=== PATIENT | male | born 1955 | race Caucasian/White ===

== ENCOUNTER 2019-03-04 08:10 | Inpatient (IN) | payer OTHER ==
[~2019-03-04] VITALS: Ht 180.3 cm; Wt 74.4 kg
[2019-03-04] VITALS (8 sets, daily range): BP systolic 116–145; BP diastolic 78–92
[~2019-03-04 08:10] MED LIST: DAYPRO600 M1 PO; NITROSTAT0.4 MG SL; NKHM; PRILOSEC20 MG PO; REGLAN5 MG PO; ROBAXIN750 MG PO; ZOFRAN4 MG PO
[2019-03-04 08:31] LABS: BASO # 0.1 10*3/uL (0.0-0.1); EOS # 0.2 10*3/uL (0.0-0.4); EOS % 2.4 % (1.0-4.0); HEMATOCRIT 36.7 % (42.0-52.0); HEMOGLOBIN 11.9 g/dl (14.0-18.0); LYMPH # 2.1 10*3/uL (1.3-4.4); LYMPH % 20.7 % (27.0-41.0); MEAN CELL VOLUME 89.3 fl (80.0-94.0); MEAN CORPUSCULAR HGB CONC 32.4 g/dl (33.0-37.0); MEAN PLATELET VOLUME 8.7 fl (9.6-12.3); MONO # 0.9 10*3/uL (0.1-1.0); MONO % 8.8 % (3.0-9.0); NEUT # 6.7 10*3/uL (2.3-7.9); NEUT % 66.8 % (47.0-73.0); PLATELET COUNT AUTOMATED 443 10*3/uL (130-400); RED BLOOD COUNT 4.11 10*6/uL (4.50-5.90); RED CELL DISTRI WIDTH 12.5 % (0-14.5); WHITE BLOOD COUNT 10.1 10*3/uL (4.8-10.8)
[2019-03-04 08:41] LABS: ACT PARTIAL THROMBO TIME 27.5 SECONDS (20.0-32.1)
[2019-03-04 08:47] LABS: ALBUMIN 2.8 gm/dl (3.1-4.5); ALKALINE PHOSPHATASE 89 U/L (45-117); BUN 12 mg/dl (7-24); CHLORIDE 103 mmol/L (98-107); CREATININE 0.94 mg/dL (0.70-1.30); POTASSIUM 4.4 mmol/L (3.5-5.1); SGOT/AST 10 IU/L (3-35); SGPT/ALT 12 U/L (12-78); SODIUM 135 mmol/L (136-145); TOTAL PROTEIN 7.6 gm/dL (6.4-8.2)
[2019-03-04 08:48] LABS: TROPONIN I < 0.015 ng/ml (<0.045)
--- NOTE | 2019-03-04 09:45 | NUR ---
PT AMBULATED TO BATHROOM IN HALLWAY AND BACK TO ROOM, TOLERATED WELL
--- NOTE | 2019-03-04 10:25 | NUR ---
1 GM ROCEPHIN GIVEN IV, NOT THE 2 GM SCANNED. THIS NURSE CHECKED WITH PHARMACY AND DANELLE STATED ONLY 1 GM TO BE GIVEN AND TO DOCUMENT IN NURSES NOTES HE WAS UNABLE TO CANCEL MED.
--- NOTE | 2019-03-04 11:29 | NUR ---
A 63, admitted to , under the services of BOGDAN Pierre DO with a diagnosis of PNEUMONIA AND CHEST PAIN. Chief complaint is CHEST PAIN. Patient arrived via bed from ER. Monitor applied. Initial assessment completed. Vital signs taken and recorded. BOGDAN PIERRE DO notified of admission to the unit. Orders received. See assessment for past medical history, medications and allergies. Patient and/or family oriented to unit. [facility] visitation policy reviewed. Clothing/patient valuable form completed. YADIRA RODRIGUEZ
--- NOTE | 2019-03-04 12:04 | NUR ---
ALBINA NOTIFIED PT DOES NOT TAKE ANY HOME MEDICATIONS. STATES SHE IS PUTTING ORDERS IN AT THIS TIME.
--- NOTE | 2019-03-04 12:18 | NUR ---
CONSULT CALLED TO DR. BOJORQUEZ, NO ORDERS RECEIVED.
--- NOTE | 2019-03-04 15:50 | NUR ---
PT. INSTRUCTED ON FLUTTER, AERO TX NOT GIVEN , NO SOB AND LUNGS CLEAR AT THIS TIME.
[2019-03-05] VITALS: BP 112/80
[2019-03-05 06:29] LABS: BASO # 0.1 10*3/uL (0.0-0.1); BASO % 1.5 % (0.0-1.0); EOS # 0.2 10*3/uL (0.0-0.4); EOS % 2.6 % (1.0-4.0); HEMATOCRIT 34.9 % (42.0-52.0); HEMOGLOBIN 11.2 g/dl (14.0-18.0); LYMPH # 1.6 10*3/uL (1.3-4.4); LYMPH % 18.2 % (27.0-41.0); MEAN CELL VOLUME 87.9 fl (80.0-94.0); MEAN CORPUSCULAR HGB 28.2 pg (27.0-31.0); MEAN CORPUSCULAR HGB CONC 32.1 g/dl (33.0-37.0); MEAN PLATELET VOLUME 8.9 fl (9.6-12.3); MONO # 0.7 10*3/uL (0.1-1.0); MONO % 8.4 % (3.0-9.0); NEUT # 5.9 10*3/uL (2.3-7.9); NEUT % 68.9 % (47.0-73.0); PLATELET COUNT AUTOMATED 426 10*3/uL (130-400); RED BLOOD COUNT 3.97 10*6/uL (4.50-5.90); RED CELL DISTRI WIDTH 12.4 % (0-14.5); WHITE BLOOD COUNT 8.5 10*3/uL (4.8-10.8)
[2019-03-05 06:47] LABS: ALBUMIN 2.4 gm/dl (3.1-4.5); BUN 12 mg/dl (7-24); CHLORIDE 109 mmol/L (98-107); CHOLESTEROL 144 mg/dL (<200); CREATININE 0.71 mg/dL (0.70-1.30); PHOSPHOROUS 1.8 mg/dL (2.5-4.9); POTASSIUM 3.8 mmol/L (3.5-5.1); SGOT/AST 10 IU/L (3-35); SGPT/ALT 12 U/L (12-78); SODIUM 137 mmol/L (136-145); TRIGLYCERIDES 67 mg/dl (<150); VLDL CHOLESTEROL 13 mg/dL (6-40)
[2019-03-05 06:54] LABS: ALKALINE PHOSPHATASE 86 U/L (45-117); HDL CHOLESTEROL 33 mg/dl (40-60); LDL CHOLESTEROL 98 mg/dL (9-159); TOTAL PROTEIN 6.9 gm/dL (6.4-8.2)
[2019-03-05 08:00] VITALS: BP 112/80
[2019-03-05 12:00] VITALS: BP 109/72
--- NOTE | 2019-03-05 12:49 | NUR ---
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 Patient states lives at HOME with ALONE. There are FEW steps in the home. Physician: NO PCP ONLY SEE'S [facility]: [facility] Home health services: NONE Patient's level of ADLs: INDEPENDENT Patient has working utilities: YES DME: NONE Follow-up physician's appointment after d/c: WILL FIND ONE AND SET UP APPOINTMENT Does patient want to access PORTAL?: NO Discharge plan PT LIVES AT HOME ALONE AND IS INDEPENDENT IN HIS CARE. DENIES HE WILL HAVE ANY NEEDS AT HOME. WILL RETURN HOME WHEN MEDICALLY STABLE. WILL CONTINUE TO FOLLOW. WILL HAVE A RIDE HOME ON DISCHARGE.. VINOD MORENO
--- NOTE | 2019-03-05 15:17 | NUR ---
WALKING HALLS WITH EASE. NO VOICED COMPLAINTS, NO SXS OF DISTRESS, RESPERS EASY & REGULAR.
[2019-03-05 16:00] VITALS: BP 133/79
[2019-03-05 20:00] VITALS: BP 136/80
[2019-03-06] VITALS (10 sets, daily range): BP systolic 84–124; BP diastolic 37–75
--- NOTE | 2019-03-06 08:00 | NUR ---
PT TAKEN OFF FLOOR VIA CART FOR SCHEDULED BRONCH.
--- NOTE | 2019-03-06 11:05 | NUR ---
PT RETURNED FROM SCHEDULED BRONCH.
--- NOTE | 2019-03-06 11:06 | NUR ---
ALBINA RODRIGUEZ IN TO SEE PATIENT.
--- NOTE | 2019-03-06 11:25 | NUR ---
PT MEDICATED WITH PO NORCO PER PRN ORDER FOR C/O HEADACHE. WILL MONITOR EFFECTIVENESS.
--- NOTE | 2019-03-06 12:03 | NUR ---
PT CONTINUES TO DENY NEEDS AT HOME ON DISCHARGE. CAN BE DISCHARGED TO HOME WHEN MEDICALLY STABLE. WILL CONTINUE TO FOLLOW.
--- NOTE | 2019-03-06 12:30 | NUR ---
NORCO EFFECTIVE PER PT. WILL CONTINUE TO MONITOR.
--- NOTE | 2019-03-06 16:40 | NUR ---
PATIENT UP IN RECLINER CHAIR. NO VOICED COMPLAINTS. WILL CONTINUE TO MONITOR.
--- NOTE | 2019-03-06 20:57 | NUR ---
PRN RESTORIL AND NORCO ADMINISTERED PRESCRIBED FOR PT C/O 09/05 CHEST TENDERNESS RELATED TO DRY HACKING COUGH. PT DENIES THAT THE PAIN IS HEART RELATED. STATES IT IS "FROM COUGHING". WILL CONTINUE TO MONITOR AND REASSESS. NO OTHER COMPLAINTS AT THIS TIME. CALL LIGHT IN REACH.
--- NOTE | 2019-03-06 22:00 | NUR ---
PT ASLEEP AT THIS TIME. NO SIGNS OF DISCOMFORT OR DISTRESS WERE NOTED UPON ASSESSMENT. RESPIRATIONS EASY AND UNLABORED. WILL CONTINUE TO MONITOR.
[2019-03-07] VITALS: BP 108/70
--- NOTE | 2019-03-07 00:49 | NUR ---
24 HOUR CHART CHECK COMPLETE.
[2019-03-07 08:00] VITALS: BP 105/58
--- NOTE | 2019-03-07 10:13 | NUR ---
PT MEDICATED WITH PO NORCO PER PRN ORDER FOR C/O GENERALIZED PAIN/DISCOMFORT. WILL MONITOR EFFECTIVENESS. CALL LIGHT WITHIN REACH.
[2019-03-07] MEDS ORDERED: AVPAK AZITHROM250 M1 PO (10:24)
[2019-03-07] MEDS ORDERED: VITAMIN D32000 UNI1 PO (10:24)
--- NOTE | 2019-03-07 11:27 | NUR ---
Discharge instructions reviewed with patient/family. Patient receptive and verbalizes understanding. Follow-up care arranged. Written instructions given to patient/family. SURINDER BOJORQUEZ.
--- NOTE | 2019-03-07 12:41 | NUR ---
PT STATES HE WILL RETURN HOME ON DISCHARGE WITH NO NEW NEEDS. WILL CONTINUE TO FOLLOW.
[2019-03-07 15:06] LABS: ACID FAST SPEC PROCESSING Concentration (.)
[2019-04-17 17:11] LABS: ACID FAST CULTURE Negative (.)
== END 2019-03-07 11:27 | disposition home or self-care (01) | DRG 871 ==
LOC: ED 08:10 → EDHOLD 09:21 → 5E 09:21
PROVIDERS: Emergency Medicine; Internal Medicine Critical Care Medicine; Registered Nurse; ADMIT Internal Medicine
PROC: 0BB48ZX Excision of Right Upper Lobe Bronchus, Via Natural or Artificial Opening Endoscopic, Diagnostic (ICD-10-PCS; principal; 2019-03-06)
PROC: 0BD38ZX Extraction of Right Main Bronchus, Via Natural or Artificial Opening Endoscopic, Diagnostic (ICD-10-PCS; principal; 2019-03-06)
PROC: 0BC98ZZ Extirpation of Matter from Lingula Bronchus, Via Natural or Artificial Opening Endoscopic (ICD-10-PCS; principal; 2019-03-06)
PROC: 0BC88ZZ Extirpation of Matter from Left Upper Lobe Bronchus, Via Natural or Artificial Opening Endoscopic (ICD-10-PCS; principal; 2019-03-06)
DX: A41.9 Sepsis, unspecified organism (principal); J15.6 Pneumonia due to other Gram-negative bacteria; E87.1 Hypo-osmolality and hyponatremia; E44.0 Moderate protein-calorie malnutrition; J44.0 Chronic obstructive pulmonary disease with (acute) lower respiratory infection; E78.2 Mixed hyperlipidemia; K21.9 Gastro-esophageal reflux disease without esophagitis; R91.1 Solitary pulmonary nodule; F10.10 Alcohol abuse, uncomplicated; Z90.49 Acquired absence of other specified parts of digestive tract; Z87.891 Personal history of nicotine dependence; Z68.22 Body mass index [BMI] 22.0-22.9, adult

== ENCOUNTER 2019-03-31 16:41 | Inpatient (IN) | payer OTHER ==
[~2019-03-31] VITALS: Ht 180.3 cm; Wt 61.4 kg
--- NOTE | ~2019-03-31 | EKG ---
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: : 1955 Requested By: BOBBI ASHLEY Order Number: [id number] Reading MD: Job Anglin Measurements Intervals [place] Rate: 107 P: 52 CO: 128 QRS: -40 QRSD: 97 T: 70 QT: 345 QTc: 461 Interpretive Statements Sinus tachycardia Ventricular premature complex Left axis deviation Low voltage, extremity leads Compared to ECG 03/05/2019 10:32:32 Ventricular premature complex(es) now present Left-axis deviation now present Low QRS voltage now present Sinus rhythm no longer present Electronically Signed On 04-01-2019 11:14:05 PST by Job Anglin CM:EKGRPT:ELECTROCARDIOGRAM REPORT [id number] BOBBI ADAMS DRAFT REPORT BOBBI ASHLEY MD
--- NOTE | ~2019-03-31 | EKG ---
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1955 Requested By: BOBBI ASHLEY Order Number: [id number] Reading MD: Job Anglin Measurements Intervals [place] Rate: 94 P: 63 NE: 140 QRS: -57 QRSD: 100 T: 70 QT: 373 QTc: 467 Interpretive Statements Sinus rhythm Multiple premature complexes, vent \T\ supraven Probable left atrial enlargement LAD, consider left anterior fascicular block Abnormal R-wave progression, late transition Compared to ECG 03/05/2019 10:32:32 No significant changes Electronically Signed On 04-01-2019 11:16:58 PST by Job Anglin CM:EKGRPT:ELECTROCARDIOGRAM REPORT [id number] BOBBI ADAMS DRAFT REPORT BOBBI ASHLEY MD
--- NOTE | ~2019-03-31 | PR ---
[place], [place] PROGRESS NOTE [id number] UNIT #: [id number] ROOM: 404 DOCTOR: PARIS MERCADO MD BIRTHDATE: [birth year] DOS: 04/04/2019 SUBJECTIVE: The patient has been still complaining of pain in the chest at the site of PleurX catheter, stated the pain does not come unless he moves around. He denies symptoms of hemoptysis. The patient has not been reported any symptoms of headache or diplopia. Denies symptoms of nausea, vomiting or diarrhea. He has expectorated sputum, which will be sent to the lab for culture. PleurX catheter was inserted 2 days ago. Remaining systems reviewed. They were noted all negative. OBJECTIVE: VITAL SIGNS: For the patient normal temperature, respiratory rate 20, heart rate 108, blood pressure 114/64. The pulse oxygen saturation on 3 liters nasal cannula 93% saturation. HEENT: Examination shows head was atraumatic. Eyes nonicterus. NECK: Supple. CARDIOVASCULAR: S1, S2 audible. LUNGS: Noted decreased breath in the right lung as previously. ABDOMEN: Soft, nontender. Bowel sounds present. EXTREMITIES: Noted without any acute edema. LABORATORY DATA: There were no labs done today. The culture of the pleural fluid noted no bacterial growth. IMPRESSION: Malignant right pleural fluid with acute pneumonia, possibility of a post-obstruction and poorly differentiated adenocarcinoma. PLAN OF MANAGEMENT: Another drainage of the pleural fluid will be attempted. Significant improvement in the aeration of the lungs noted. Post drainage of pleural fluid was assessed yesterday. In the meantime, continue other therapy, plan of management. Send the sputum for culture. Continue antibiotics. Additional treatment changes recommended based on progression of the illness. The drainage of pleural fluid will be done by the nursing staff from the PleurX catheter. [place], [place] PROGRESS NOTE NAME: [facility] [id number] UNIT #: [id number] ROOM: 404 DOCTOR: PARIS MERCADO MD BIRTHDATE: [birth year] PARIS BOJORQUEZ MD CM:PNTRANS [id number] PARIS BECKER MD 04/04/19 1358 interface
--- NOTE | ~2019-03-31 | PR ---
[place], [place] PROGRESS NOTE NAME: ANNALEE VYAS [facility] #: [id number] UNIT #: [id number] ROOM: 404 DOCTOR: RENO BECKER MD,PARIS BIRTHDATE: [birth year] DOS: 04/08/2019 PULMONARY PROGRESS NOTE SUBJECTIVE: He has been still noted about the same. No major changes in the oxygen improvement was noted, mild tachypnea noted at rest. He has been continued on all other previous treatment and was also started on Lasix yesterday. We noted negative fluid balance of 800 mL. The patient has not been noted with symptoms of coughing or any chest pain. He was continued on antibiotic for as well. He has not been noted symptoms of headache or diplopia. Denies symptoms of nausea, vomiting, diarrhea, abdominal pain, hematemesis, melena, or hematochezia. No symptoms of headache or diplopia. Remaining systems were reviewed with the patient, they were noted all negative. OBJECTIVE: GENERAL: The patient noted comfortable at this time, resting in the bed this morning of assessment with oxygen supplementation used by the nasal cannula. VITAL SIGNS: Normal temperature, respiratory rate 18, heart rate 102, blood pressure 143/77. Pulse oxygen saturation on 7 liters nasal cannula 92% saturation. HEENT: Examination shows head was atraumatic. Eyes nonicterus. NECK: Supple. CARDIOVASCULAR: S1, S2 audible. LUNGS: Scattered crackles of the lung. There was no wheezing. ABDOMEN: Soft, nontender. Bowel sounds present. EXTREMITIES: The patient was noted without acute edema. MUSCULOSKELETAL: Noted without any acute deformities. CENTRAL NERVOUS SYSTEM: Noted intact bilaterally. LABORATORY DATA: There were no labs done today. IMPRESSION: The patient with persistent severe acute hypoxic respiratory failure, which is worse in the last 48 hours. The patient has been given diuretic of no benefit. Right middle lobe atelectasis has a mass lesion and the right lower lobe infiltration was noted. Currently treated for suspected pneumonia. The patient remains afebrile and there were no significant leukocytosis. PLAN OF MANAGEMENT: The patient will be recommended transfer to [facility] for further assessment and care of his malignant process. In the meantime, continue the patient's current therapy, plan of management, care plan treatment as well. Usual care, other supportive plan of therapy. Continue oxygen supplementation, pulse ox 92% or greater. Supportive care. Continuation of the medical and acute pulmonary embolism with the Lovenox. [place], [place] PROGRESS NOTE NAME: ANNALEE VYAS UNIT #: [id number] ROOM: [facility] DOCTOR: PARIS MERCADO MD BIRTHDATE: [birth year] PARIS BOJORQUEZ MD CM:PNTRANS [phone] PARIS BECKER MD 04/09/19 0104 interface
--- NOTE | ~2019-03-31 | CON ---
[place], [place] REPORT OF CONSULTATION NAME: ANNALEE VYAS UNIT #: [id number] ROOM: 404 DOCTOR: GALILEO AGRAWALRICH BIRTHDATE: [birth year] DOS: 04/05/2019 CARDIOLOGY CONSULTATION REASON FOR CONSULTATION: Supraventricular tachycardia. HISTORY OF PRESENT ILLNESS: The patient is a 65-year-old gentleman who was admitted several days ago for shortness of breath. He was diagnosed with pulmonary emboli as well as some right lower lung mass. The patient had right PleurX catheter and follows up with Dr. Velez, he noted to have a brief supraventricular tachycardia, hence Cardiology was consulted. He did complain of some pain, sharp at the PleurX catheter, but no palpitations or dizziness. No orthopnea. No exertional chest pain. The patient is slightly short of breath and currently on oxygen. No nausea, vomiting, diarrhea. No fever or chills. No neurologic symptoms. No bladder or bowel symptoms. No musculoskeletal symptoms. REVIEW OF SYSTEMS: Ten systems negative except as mentioned above. PAST MEDICAL HISTORY: 1. Right lung cancer. 2. Dyslipidemia. PAST SURGICAL HISTORY: History of carpal tunnel surgery, cholecystectomy. FAMILY HISTORY: Nil contributory. SOCIAL HISTORY: The patient quit smoking in January 2019. Does not use illicit drugs. The patient does drink alcohol. ALLERGIES: Reviewed. HOME MEDICATIONS: Reviewed. PHYSICAL EXAMINATION: VITAL SIGNS: Blood pressure 124/70, pulse 102, respiratory rate 20, weight 65.2 kg, BMI 20. GENERAL: Alert, comfortable, in no acute distress. HEENT: Pupils are round and equal. No jaundice. NECK: Supple. No distended neck veins. No carotid bruit. CHEST: Nontender. The patient had a right PleurX catheter in place. LUNGS: A few scattered rhonchi, diminished at right side. HEART: Regular rhythm, no S3, no palpable thrills. ABDOMEN: Nontender. Bowel sounds normal. EXTREMITIES: Showed no edema. Distal pulses palpable. SKIN: Warm and dry. No cyanosis, no clubbing. RECTAL: Deferred. GENITOURINARY: Deferred. NEUROLOGIC: The patient is alert with no focal neurologic deficit. PSYCHIATRIC: Alert with good mood and affect. [place], [place] REPORT OF CONSULTATION NAME: ANNALEE VYAS UNIT #: [id number] ROOM: 404 DOCTOR: GALILEO AGRAWAL,RICH BIRTHDATE: [birth year] REVIEW OF THE DIAGNOSTIC TESTS: EKG shows sinus rhythm. CBC, chemistry reviewed. Rhythm strip showed patient had 17 beat supraventricular tachycardia. Hemoglobin 9.7, white cell count 12.7, platelet 411,000. Potassium 3.7, magnesium 2.2. TSH is normal. Cardiac troponins on admission slightly elevated at 0.15, 0.13, 0.1, trending down. Echo from 04/02/2019 showed EF 55-60%, small pericardial effusion. IMPRESSION: 1. Paroxysmal supraventricular tachycardia, brief, asymptomatic. 2. Sinus tachycardia. 3. Left pulmonary emboli. 4. Right lung cancer, status post right PleurX catheter. 5. Anemia. 6. Small pericardial effusion. RECOMMENDATIONS: 1. Start low-dose beta hollis, metoprolol 25 mg twice daily and monitor his blood pressure and heart rate. His thyroid function tests are normal. 2. Continue his Lovenox anticoagulation for his left pulmonary emboli. 3. Cardiology will see as needed during the weekend. 4. No family at bedside at the time of examination. RICH GURROLA MD CM:CONSTR:REPORT OF CONSULTATION 1336 04/05/19 1430 interface
--- NOTE | ~2019-03-31 | PR ---
[place], [place] PROGRESS NOTE NAME: ANNALEE VYAS [facility] #: [id number] UNIT #: [id number] ROOM: 404 DOCTOR: RENO BECKER MD,PARIS BIRTHDATE: [birth year] DOS: 04/02/2019 SUBJECTIVE: He has been noted with increased symptoms of shortness of breath today. Denies symptoms of chest pain. Denies symptoms of fever or chills. Denies symptoms of hemoptysis. Denies symptoms of nausea, vomiting, or diarrhea. The patient has been noted mild cough without any sputum expectoration. The patient denies symptoms of headache. Remaining systems were reviewed. They were noted all negative. OBJECTIVE: VITAL SIGNS: This morning, blood pressure 140/58, heart rate 102 with mild sinus tachycardia, respiratory rate 22 and temperature was normal. Pulse oxygen saturation on 3 liters nasal cannula was 95% saturation recorded. HEAD, EYES, EARS, NOSE, AND THROAT: Examination shows head was atraumatic. Eyes nonicterus. NECK: Supple. CARDIOVASCULAR SYSTEM: S1, S2 is audible. LUNGS: Noted decreased breath sounds noted bronchial breathing on the right lung. ABDOMEN: Soft, nontender. Bowel sounds present. EXTREMITIES: No acute edema. MUSCULOSKELETAL: Without acute deformities. CENTRAL NERVOUS SYSTEM: Noted without any focal neurologic deficit. LABORATORY DATA: Ultrasound bilateral lower extremity noted negative for deep venous thrombosis, superficial thrombophlebitis within the left greater saphenous was noted. Blood culture was noted no bacterial growth. IMPRESSION: 1. The patient with acute pulmonary embolism of the left lower pulmonary arterial branches. 2. The patient with current lung malignant adenocarcinoma with area of atelectasis, possibility of postobstructive pneumonia has been considered. 3. Pleural fluid, most likely malignant pleural fluid, however, the assessment needs to be done as well. 4. shortness of breath related to current ongoing medical illnesses. There was no active wheezing or any temperature elevation. PLAN OF MANAGEMENT: The patient has been ordered assessment by the Radiology services for the either pigtail catheter placement or catheter. Pleural fluid will be analyzed after the insertion that should improve his shortness of breath. Continue current antibiotics, bronchodilators, other therapy, plan of management, anticoagulation adjustment for the procedure by Dr. Richardson ordered. He will be monitored and followed up. The assessment and management discussed with primary care attending Berenice Solis. Past, family, social, surgical remains unchanged. [place], [place] PROGRESS NOTE NAME: ANNALEE VYAS UNIT #: [id number] ROOM: [facility] DOCTOR: PARIS MERCADO MD BIRTHDATE: [birth year] PARIS BOJORQUEZ MD CM:PNTRANS [id number] PARIS BECKER MD 04/02/19 1433 interface
--- NOTE | ~2019-03-31 | PR ---
[place], [place] PROGRESS NOTE NAME: ANNALEE VYAS [facility] #: [id number] UNIT #: [id number] ROOM: 404 DOCTOR: RENO BECKER MD,PARIS BIRTHDATE: [birth year] DOS: 04/03/2019 PULMONARY PROGRESS NOTE SUBJECTIVE: He was noted comfortable at this time this afternoon of assessment, but complaining of pain at the site of the PleurX catheter insertion. ____ more pleural fluid was removed yesterday. Currently, the patient has PleurX catheter in place, which has been capped. He has not been noted symptoms of fever or chills. Denies symptoms of hemoptysis. Cough has been noted mild. There was no sputum expectoration. Denies any symptoms of chills or fever. Remaining systems were reviewed. They were noted all negative. OBJECTIVE: VITAL SIGNS: For the patient this afternoon, normal temperature, respiratory rate 20, heart rate 105, blood pressure 114/57. The pulse oxygen saturation recorded as 97% saturation on 3 liters nasal cannula at rest. HEENT: Examination shows head was atraumatic. Eyes nonicterus. NECK: Supple. CARDIOVASCULAR: S1, S2 is audible. LUNGS: Noted improvement in the air entry, partially on the right side of the lung. ABDOMEN: Soft, nontender. Bowel sounds present. EXTREMITIES: The patient was noted without any acute edema. LABORATORY DATA: Pleural fluid analysis of the patient yesterday, WBC is 3726, 58% neutrophils, 35% lymphocytes. The cytology was noted with malignant cells. CMP this morning is normal BUN and creatinine. Chest x-ray that was done this morning for the patient was noted with improvement in the aeration, PleurX catheter noted on right side of the pleural space. CBC of this morning, WBC count 14,000. Hemoglobin 9.8. IMPRESSION: 1. The patient has been currently noted stable at the present time with malignant pleural fluid with PleurX catheter in place and acute postobstructive pneumonia. 2. Poorly differentiated adenocarcinoma of the lung. PLAN OF MANAGEMENT: Continuation of current pain management, draining of pleural fluid will be attempted tomorrow morning. Continue antibiotics, bronchodilator therapy, plan of management, care plan of treatment. Continue medical management of acute pulmonary embolism with subcutaneous therapeutic Lovenox. [place], [place] PROGRESS NOTE NAME: ANNALEE VYAS UNIT #: [id number] ROOM: 404 DOCTOR: RENO BECKER MD,PARIS BIRTHDATE: [birth year] PARIS BOJORQUEZ MD CM:PNTRANS 01 [phone] PARIS BECKER MD 04/04/19 0109 interface
--- NOTE | ~2019-03-31 | PR ---
[place], [place] PROGRESS NOTE NAME: ANNALEE VYAS [facility] #: [id number] UNIT #: [id number] ROOM: 404 DOCTOR: RENO BECKER MD,PARIS BIRTHDATE: [birth year] DOS: 04/05/2019 PULMONARY PROGRESS NOTE SUBJECTIVE: The patient was noted comfortable at this time. He has been noted with partial reduction of the chest pain. Denies symptoms of hematemesis or melena. Cough has been noted at times. Complaining of shortness of breath at rest. There were no symptoms of fever or chills. Continued treatment for the acute pulmonary embolism with Lovenox therapeutic dose. The patient has not been noted with symptoms of fever or chills. Denies symptoms of hemoptysis. Coughing has been noted intermittent, with small sputum expectoration. The culture was sent yesterday. Denies headache or diplopia. Remaining systems were reviewed, they were noted all negative. OBJECTIVE: VITAL SIGNS: For the patient, which are recorded as normal temperature, respiratory rate recorded at 20, heart rate 110. This morning, mild sinus tachycardia at 124/70. Pulse oxygen saturation recorded on 3 liters nasal cannula is 92% saturation. HEENT: Examination shows head was atraumatic. Eyes nonicterus. NECK: Supple. CARDIOVASCULAR: S1, S2 audible. LUNGS: Noted without any wheezing or crackles at the present time. ABDOMEN: Soft, nontender. Bowel sounds present. EXTREMITIES: Without any acute edema. MUSCULOSKELETAL: Without any deformity. CENTRAL NERVOUS SYSTEM: The patient was intact. LABORATORY DATA: Pleural fluid cytology confirmed as malignant pleural effusion. CBC today: WBC count 12.7, hemoglobin 9.7, platelet count were normal. Culture of the sputum was noted with preliminary normal mando, final results are pending. Gram stain, moderate white blood cells, epithelial cells, few gram-positive cocci in chains and clusters and few budding yeast. IMPRESSION: Malignant pleural fluid with adenocarcinoma, which is noted advanced, currently treated for septic pneumonia, also for acute pulmonary embolism. PLAN OF MANAGEMENT: The patient will be given low dose of anxiolytic since we have noticed shortness breath with clear lungs. He is already being treated for pulmonary embolism and other etiologies. Continue with current plan of management, monitor culture results. Another chest x-ray will be done in the morning to reassess and possible discharge planning could be started after that. He may be ordered drainage of the pleural fluid again. Yesterday drainage of pleural fluid noted 650 mL of pleural fluid drainage. [place], [place] PROGRESS NOTE NAME: ANNALEE VYAS UNIT #: [id number] ROOM: [facility] DOCTOR: PARIS MERCADO MD BIRTHDATE: [birth year] PARIS BOJORQUEZ MD CM:PNTRANS [phone] PARIS BECKER MD 04/05/19 2202 interface
--- NOTE | ~2019-03-31 | PR ---
[place], [place] PROGRESS NOTE NAME: ANNALEE VYAS UNIT #: [id number] ROOM: 404 DOCTOR: PARIS MERCADO MD BIRTHDATE: [birth year] DOS: 04/06/2019 PULMONARY PROGRESS NOTE SUBJECTIVE: The patient noted comfortable at this time, sitting on the bed this morning, had not been reported symptoms of chest pain. He still complaining of some shortness of breath. The pain in the chest noted decreased from the PleurX catheter. OBJECTIVE: VITAL SIGNS: Normal temperature, respiratory rate 12, heart rate 96, blood pressure 122/76. The pulse oxygen saturation recorded on 3 liters got 92% saturation. HEENT: Examination shows head was atraumatic. Eyes nonicterus. NECK: Supple. CARDIOVASCULAR: S1, S2 audible. LUNGS: Without any wheeze or crackles. Decreased breath sounds in the right side previously noted. ABDOMEN: Soft, nontender. Bowel sounds present. EXTREMITIES: No new change. LABORATORY DATA: Chest x-ray was noted without any visible pleural fluid at this time with area of lesion with volume loss in the right lung, in the right middle lobe was noted unchanged. Sputum culture noted no bacterial growth. IMPRESSION: Post-obstructive pneumonia with a lung malignancy noted as adenocarcinoma. The patient with chest tube with malignant pleural fluid as well in the right side, currently drained with the PleurX catheter intermittently. PLAN OF MANAGEMENT: Drain the pleural fluid with PleurX catheter again today. Continue maximizing medical management as well. Discharge planning should be started. The patient will require home administration of the Lovenox for the medical management of acute pulmonary embolism, which is noted on this admission as well as drainage of the pleural fluid from the PleurX catheter. [place], [place] PROGRESS NOTE NAME: ANNALEE VYAS UNIT #: [id number] ROOM: 404 DOCTOR: PARIS MERCADO MD BIRTHDATE: [birth year] PARIS BOJORQUEZ MD CM:PNTRANS 17 [phone] PARIS BECKER MD 04/06/19 1942 interface
--- NOTE | ~2019-03-31 | EKG ---
[place], [place] ELECTROCARDIOGRAM REPORT NAME: ANNALEE VYAS UNIT #: [id number] ROOM: 404 DOCTOR: ANGIE DRAFT REPORT BIRTHDATE: [birth year] [facility] Test Date: 2019-03-31 Test Time: 20:12:16 Pat Name: ANNALEE VYAS Department: Room: 404 Gender: M Senior Ssis Developer: : [id number] Requested By: BOBBI ASHLEY Order Number: [id number] Reading MD: Job Anglin Measurements Intervals [place] Rate: 103 P: 26 ID: [id number] QRS: -42 QRSD: 113 T: 53 QT: 387 QTc: 507 Interpretive Statements Sinus tachycardia Left anterior fascicular block Baseline artifacts Prolonged QT interval Artifact in lead(s) I,II,III,aVR,aVL,aVF,V1,V2,V3,V4,V5,V6 Compared to ECG 03/05/2019 10:32:32 Ventricular tachycardia now present ST (T wave) deviation now present Myocardial infarct finding now present Prolonged QT interval now present Sinus rhythm no longer present Electronically Signed On 04-01-2019 11:16:20 PST by Job Anglin CM:EKGRPT:ELECTROCARDIOGRAM REPORT 11 [id number] BOBBI ADAMS DRAFT REPORT BOBBI ASHELY MD
--- NOTE | ~2019-03-31 | PR ---
[place], [place] PROGRESS NOTE NAME: ANNALEE VYAS UNIT #: [id number] ROOM: 404 DOCTOR: PARIS MERCADO MD BIRTHDATE: [birth year] DOS: 04/07/2019 SUBJECTIVE: The patient was noted with mild shortness of breath this morning, has been noted with oxygen supplementation, high flow nasal cannula this morning. He had not been reported symptoms of chest pain or any hemoptysis. Denies symptoms of fever or chills. Denies symptoms of nausea or vomiting. His oxygen requirement has markedly increased 3 liters up to 7 liters nasal cannula this morning of assessment. Additional review of systems noted negative. OBJECTIVE: VITAL SIGNS: For the patient, which are recorded shows a normal temperature, respiratory rate 20, heart rate 188, blood pressure 124/70-131/79. Pulse oxygen saturation recorded on 7 liter nasal cannula 91% saturation. HEENT: Examination shows head was atraumatic. Eyes nonicterus. NECK: Supple. CARDIOVASCULAR: S1, S2 audible. LUNGS: Noted decreased breath sounds noted in the right lung. ABDOMEN: Soft, nontender. Bowel sounds present. EXTREMITIES: Without any acute edema, clubbing or cyanosis. MUSCULOSKELETAL: Without any deformities. CENTRAL NERVOUS SYSTEM: Intact. IMPRESSION: 1. The patient with acute progressive respiratory failure, possibility of the right lung cannot be completely excluded resulting from this increased oxygen requirement. 2. Chronic obstructive pulmonary disease. 3. Postobstructive pneumonia. 4. The patient with adenocarcinoma of the lung. PLAN OF MANAGEMENT: Order a chest x-ray to assess the patient's current problem. Continue oxygen supplementation to maintain pulse ox 92% or greater. Continuation of antibiotic based on current culture results. Continue other therapy, plan of management, care plan treatment. Consider drainage of pleural fluid possibly tomorrow and/or today based on the chest x-ray results. [place], [place] PROGRESS NOTE NAME: ANNALEE VYAS UNIT #: [id number] ROOM: 404 DOCTOR: PARIS MERCADO MD BIRTHDATE: [birth year] PARIS BOJORQUEZ MD CM:PNTRANS [id number] PARIS BECKER MD 04/07/19 1603 interface
--- NOTE | ~2019-03-31 | CON ---
[place], [place] REPORT OF CONSULTATION NAME: ANNALEE VYAS [facility] #: [id number] UNIT #: [id number] ROOM: 404 DOCTOR: PARIS MERCADO MD BIRTHDATE: [birth year] DOS: 04/01/2019 PULMONARY CONSULTATION, EVALUATION AND MANAGEMENT CONSULTATION REQUESTED BY: Hospitalist services. REASON FOR CONSULTATION: For assessment of acute pulmonary embolism. Possibility of postobstructive pneumonia and others. HISTORY OF PRESENT ILLNESS: This is a 64-year-old white male patient who has already been diagnosed poorly differentiated adenocarcinoma with bronchoscopy in 02/2019. The appointment has been established, medical oncologist to be seen, but the patient could not go to see. The Medical Oncology has been seen in the office in the next few days because difficulty of transportation. He states his sister only can take him to the medical oncologist and changes appointment by I believe on 04/07/2019 or 04/08/2019. The patient's appointment was established in [facility] by Dr. Slade for assessment and medical management of the advanced adenocarcinoma of the lung. The patient has been also known with a history of COPD that has been treated. He has already completed 10 days or greater portion of antibiotic as an outpatient for the postobstructive pneumonia and was doing well when he was seen in my office last month. He has been brought to the hospital and hospitalized under the care of hospitalist service last evening. The patient stated that he has been noted increased shortness of breath that was occurring at home with confusional status and inability to think correctly. He has been brought to the hospital for the assessment of the above symptoms. He does have some cough, but there was no sputum expectoration. There were no symptoms of chest pain reported by the patient. The patient has been assessed in the Emergency Room, underwent CTA of the chest does show evidence of acute pulmonary embolism finding of the left lower lobe arterial branches. He has been admitted to the hospital for further care. He had not been reported any symptoms of chest pain. Denies symptoms of hemoptysis with current symptoms. Cough has been noted sometime moderate without any severe expectoration. Denies symptoms of wheezing. REVIEW OF SYSTEMS: CONSTITUTIONAL SYMPTOMS: Fatigue and tiredness noted without any symptoms of fever or chills. EYES: Denies any burning, redness, or tenderness. EARS, NOSE, THROAT SYMPTOMS: No sore throat, hoarseness, otalgia, postnasal drainage or epistaxis. CARDIOVASCULAR: Denies angina pain, edema, pain of the lower extremities. GASTROINTESTINAL SYMPTOMS: Denies dysphagia, nausea, vomiting, diarrhea, abdominal pain, hematemesis, melena, or hematochezia. The patient has been noted with history of weight loss related to malignancy of the lung, which has already been diagnosed. GENITOURINARY SYMPTOMS: No dysuria, suprapubic pain, or hematuria. MUSCULOSKELETAL: No acute joint pain, redness, or tenderness. SKIN: Denies any lesions or rashes. CENTRAL NERVOUS SYSTEM: The patient denies dizziness, headache, diplopia, syncopal episodes. [place], [place] REPORT OF CONSULTATION NAME: ANNALEE VYAS UNIT #: [id number] ROOM: [facility] DOCTOR: PARIS MERCADO MD BIRTHDATE: [birth year] Remaining systems were reviewed with the patient, they were noted all negative. PAST MEDICAL HISTORY: Known with history of: 1. Chronic obstructive pulmonary disease. 2. Poorly differentiated adenocarcinoma of the right lung diagnosed with bronchoscopy. 3. Cholecystectomy. 4. Bilateral carpal tunnel surgery. 5. Inguinal hernia repair. PAST SURGICAL HISTORY: Noted with bronchoscopy that was done on 03/06/2019, diagnosis of lung cancer was established at that time. ____. SOCIAL HISTORY: The patient is , has 2 children, lives at home. He has been noted tobacco use from age of early teens, 2 pack of cigarettes per day, discontinued in 01/2019. Denies history of alcohol use or illicit drug use. He works at [employer] in the [employer]. FAMILY HISTORY: Noted noncontributory. CURRENT MEDICATIONS: Which has been administered as the use of: 1. Lovenox 70 mg subcutaneous injection b.i.d. 2. Rocephin 2 gram IV daily. 3. Zithromax 500 mg IV daily. 4. Other p.r.n. meds. DRUG ALLERGIES: Noted as no known drug allergies. PHYSICAL EXAMINATION: GENERAL: This is a 64-year-old male patient who has been currently noted to be awake and alert, sitting on the bed without any distress, stating that he has been feeling better and not noted with confusional status, noted previously at home. Height were recorded by the nursing staff with height of 5 feet 11 inches, weight of 144 pounds. BMI of 20. BMI, which were recorded 03/05/2019 was noted at 22.8 at that time. This is consistent with progressive weight loss. VITAL SIGNS: Recorded as a normal temperature, respiratory rate 20, heart rate 85, blood pressure 124/66. HEENT: Examination shows head was atraumatic. Eyes nonicterus. NECK: Supple. CARDIOVASCULAR: S1, S2 is audible. LUNGS: Noted without any wheezing or crackles. Severe decreased breath sounds noted in the right lung. ABDOMEN: Flat, soft, nontender. Bowel sounds present. EXTREMITIES: The patient was noted without acute edema. MUSCULOSKELETAL: Noted without acute deformities. CENTRAL NERVOUS SYSTEM: Cranial nerves 2-12 intact. LABORATORY DATA: CBC that was done yesterday in the Emergency Room, WBC count [place], [place] REPORT OF CONSULTATION NAME: ANNALEE VYAS UNIT #: [id number] ROOM: [facility] DOCTOR: [place] [facility] B[facility]: [birth year] 12.7, hemoglobin 11.7, platelet count was normal. PT/PTT was noted as normal. The CMP that was done this morning, normal BUN and creatinine. Potassium was normal. Other electrolytes normal. Troponin minimally elevated 0.154. Chest x-ray shows opacification and infiltration and volume loss in the left lung with hilar mass as well. CT of the chest shows evidence of pulmonary embolism involving the left lower pulmonary arterial branches. There was no saddle embolus. There was a small to moderate pleural fluid noted on the right side with marked increase in size of the mass lesion noted in the right lung including the right middle lobe. Difficult to assess if there is any postobstructive pneumonia. IMPRESSION: 1. The patient will be currently admitted to the hospital, changes mental status with acute pulmonary embolism in the left lower pulmonary artery branches, which are noted nonsaddle would be considered saddle embolus. 2. The patient with current diagnosis of malignancy as adenocarcinoma, which has noted progressive disease, so far has not been assessed and managed with pending appointment to be assessed by the medical oncologist in next few days. 3. Pleural fluid, most likely related to malignant noted small to moderate at the present time. 4. Progressive weight loss related to the current acute malignant process as lung cancer. 5. Chronic obstructive pulmonary disease without acute exacerbation. 6. Possibility of postobstructive pneumonia was also suspected. 7. History of past nicotine abuse, which was discontinued in 01/2019. 8. Mildly abnormal troponin, significance was unknown. PLAN OF MANAGEMENT: The patient has been already started antibiotic that will be continued Zithromax and IV Rocephin. The Lovenox will be continued at 1 mg/kg body weight is the drug of choice for current malignant condition and management of pulmonary embolism. Ultrasound of the lower extremity was ordered to further assess and characterized the pulmonary embolism, debility or other any intervention if necessary will be ordered after that. Continuation of the bronchodilators. The patient does not have any acute exacerbation of chronic obstructive pulmonary disease. The pleural fluid will be monitored in case if it gets further enlarged for this patient certainly chest tube insertion. Thoracentesis would be considered. Continuation of other therapy, plan of management additional treatment changes will be made based on progression of the illness. Overall, prognosis patient is guarded. Thanks for allowing me to participate in the care of this patient. The assessment and management discussed with ____. [place], [place] RE[facility] OF [facility]ATION [facility]: [id number] #: [id number] ROOM: [facility] DOCTOR: PARIS MERCADO MD BIRTHDATE: [birth year] PARIS BOJORQUEZ MD CM:CONSTR:REPORT OF CONSULTATION 1131 04/01/19 1517 interface
[2019-03-31 16:41] VITALS: BP 138/83
[~2019-03-31 16:41] MED LIST changes: +AVPAK AZITHROM250 M1 PO; +VITAMIN D32000 UNI1 PO
[2019-03-31 16:59] LABS: BASO # 0.1 10*3/uL (0.0-0.1); BASO % 0.6 % (0.0-1.0); EOS # 0.1 10*3/uL (0.0-0.4); HEMATOCRIT 37.6 % (42.0-52.0); HEMOGLOBIN 11.7 g/dl (14.0-18.0); LYMPH # 1.1 10*3/uL (1.3-4.4); LYMPH % 8.3 % (27.0-41.0); MEAN CELL VOLUME 85.6 fl (80.0-94.0); MEAN CORPUSCULAR HGB 26.7 pg (27.0-31.0); MEAN CORPUSCULAR HGB CONC 31.1 g/dl (33.0-37.0); MEAN PLATELET VOLUME 8.8 fl (9.6-12.3); MONO # 0.7 10*3/uL (0.1-1.0); MONO % 5.7 % (3.0-9.0); NEUT # 10.7 10*3/uL (2.3-7.9); NEUT % 83.9 % (47.0-73.0); PLATELET COUNT AUTOMATED 414 10*3/uL (130-400); RED BLOOD COUNT 4.39 10*6/uL (4.50-5.90); RED CELL DISTRI WIDTH 13.5 % (0-14.5); WHITE BLOOD COUNT 12.7 10*3/uL (4.8-10.8)
[2019-03-31 17:10] LABS: ACT PARTIAL THROMBO TIME 28.5 SECONDS (20.0-32.1); INTERNATIONAL NORM RATIO 1.1 (2.0-3.5)
[2019-03-31 17:24] LABS: ALBUMIN 1.8 gm/dl (3.1-4.5); ALKALINE PHOSPHATASE 107 U/L (45-117); BUN 11 mg/dl (7-24); CHLORIDE 104 mmol/L (98-107); CREATININE 0.79 mg/dL (0.70-1.30); POTASSIUM 3.7 mmol/L (3.5-5.1); SGOT/AST 24 IU/L (3-35); SGPT/ALT 24 U/L (12-78); SODIUM 136 mmol/L (136-145); TOTAL PROTEIN 7.2 gm/dL (6.4-8.2)
--- NOTE | 2019-03-31 17:29 | NUR ---
TROPONIN OF 0.154 REPORTED TO CANDY SEBASTIAN.
[2019-03-31 17:30] LABS: TROPONIN I 0.154 ng/ml (<0.045)
[2019-03-31 20:55] VITALS: BP 157/98
--- NOTE | 2019-03-31 20:55 | NUR ---
A 64, admitted to , under the services of WILMAR Kumari DO with a diagnosis of PE,LUNG CA. Chief complaint is SHORTNESS OF BREATH. Patient arrived via bed from ER. Monitor applied. Initial assessment completed. Vital signs taken and recorded. WILMAR KUMARI DO notified of admission to the unit. Orders received. See assessment for past medical history, medications and allergies. Patient and/or family oriented to unit. [address] visitation policy reviewed. Clothing/patient valuable form completed. MARLENE SILVERIO R
--- NOTE | 2019-03-31 21:40 | NUR ---
MEDICATED WITH RESTORIL PO FOR INSOMNIA PER PT REQUEST. SEE EMAR. CALL LIGHT IN REACH.
--- NOTE | 2019-03-31 22:21 | NUR ---
DR. BOJORQUEZ CALLED AWARE OF CONSULT. ORDERS TAKEN AND REVIEWED.
--- NOTE | 2019-03-31 23:00 | NUR ---
PT TOLERATED IVF WITH NO PROBLEM. IV ANTIBIOTIC INFUSING. CALL LIGHT IN REACH.
--- NOTE | 2019-03-31 23:21 | NUR ---
DR. MILLIGAN CALLED REGARDING TROPONIN.
[2019-04-01] VITALS: BP 122/74
--- NOTE | 2019-04-01 00:10 | NUR ---
PT RESTING IN BED WITH EYES CLOSED. RESP-EASY AND REGULAR AT THIS TIME. OXYGEN IN USE. CALL LIGHT IN REACH. SEE SHIFT ASSESSMENT.
--- NOTE | 2019-04-01 03:42 | NUR ---
PT SLEEPING IN BED. RESP-EASY AND REGULAR. CALL LIGHT IN REACH.
--- NOTE | 2019-04-01 06:00 | NUR ---
RESTING IN BED WITH EYES CLOSED. RESP-EASY AND REGULAR. CALL LIGHT IN REACH.
[2019-04-01 06:37] LABS: HEMATOCRIT 38.3 % (42.0-52.0); HEMOGLOBIN 11.6 g/dl (14.0-18.0); MEAN CELL VOLUME 86.1 fl (80.0-94.0); MEAN CORPUSCULAR HGB 26.1 pg (27.0-31.0); MEAN CORPUSCULAR HGB CONC 30.3 g/dl (33.0-37.0); MEAN PLATELET VOLUME 9.1 fl (9.6-12.3); PLATELET COUNT AUTOMATED 441 10*3/uL (130-400); RED BLOOD COUNT 4.45 10*6/uL (4.50-5.90); RED CELL DISTRI WIDTH 13.4 % (0-14.5); WHITE BLOOD COUNT 10.2 10*3/uL (4.8-10.8)
[2019-04-01 06:51] LABS: BUN 13 mg/dl (7-24); CHLORIDE 108 mmol/L (98-107); CHOLESTEROL 147 mg/dL (<200); CREATININE 0.84 mg/dL (0.70-1.30); PHOSPHOROUS 2.9 mg/dL (2.5-4.9); POTASSIUM 3.8 mmol/L (3.5-5.1); SODIUM 138 mmol/L (136-145); TRIGLYCERIDES 99 mg/dl (<150); VLDL CHOLESTEROL 20 mg/dL (6-40)
[2019-04-01 06:52] LABS: HDL CHOLESTEROL 28 mg/dl (40-60); LDL CHOLESTEROL 99 mg/dL (9-159)
[2019-04-01 08:27] LABS: ACANTHOCYTES FEW; PLATELET SUFFICIENCY HIGH (NORMAL); POLYCHROMASIA SLIGHT; TOTAL CELLS COUNTED 100 #CELLS
[2019-04-01 08:44] VITALS: BP 124/66
--- NOTE | 2019-04-01 09:00 | NUR ---
Wireworker in to talk to patient. Patient states lives at home with alone. There are few steps in the home. Physician: navneet Pharmacy: [facility] Home health services: none Patient's level of ADLs: INDEPENDENT Patient has working utilities: all working DME: none Follow-up physician's appointment after d/c: will be made by hospitalist nurse director upon discharge Does patient want to access PORTAL?: no Discharge plan discussed with patient, he states he lives at home alone, he is independent in adls and ambulation, works, drives, he states he will return home when medically stable discussed with him administering lovenox shots at home, educated him that case management contacted [facility] regarding cost of lovenox shots, his cost at [facility] is $245, also checked [facility] pharmacy and patient's cost here will be $190, he stated he could afford $190 and would like to get his medication here. will inform hospitalist, patient denies any hoer needs at this time. NABOR WALL
[2019-04-01 11:54] VITALS: BP 126/80
--- NOTE | 2019-04-01 14:45 | NUR ---
Occupational Therapy evaluation completed on 4 with full eval to follow. Precautions include acute pulmonary emboli, newly diagnosed lung mass, SOB w/ min exertion,new oxygen use @4 lmpm,moderate complexity level 31433 via chart review, testing and evaluation. Recommend OT treatment to include energy conservation/work simplification, diaphramatic breathing and relaxation in ADLs to include adaptive equipment use for ease and indep in ADLs. Thank you.Brigid Mac OTR/l
[2019-04-01 16:00] VITALS: BP 116/72
[2019-04-01 20:00] VITALS: BP 125/77
[2019-04-02] VITALS (13 sets, daily range): BP systolic 109–140; BP diastolic 16–79
--- NOTE | 2019-04-02 07:32 | NUR ---
RESTING IN BED WITH PROD COUGH FOR CLEAR. DENIES NEED FOR THROAT LOZENGER OR COUGH DROP. SOB WITH TALKING. ACYANOTIC.
--- NOTE | 2019-04-02 09:00 | NUR ---
case management visits with patient, patient not feeling well at this time, will see at a later time
--- NOTE | 2019-04-02 10:00 | NUR ---
PATIENT IN RADIOLOGY FOR 2 VIEW CXR AFTER SEEN BY Elizabeth RODRIGUEZ CNP
--- NOTE | 2019-04-02 11:31 | NUR ---
RESTING IN BED - DENIES ANY NEEDS AT THIA TIME
--- NOTE | 2019-04-02 13:17 | NUR ---
OT NOTE Spoke with OTR who reported that per nurse practitioner pt has had a medical decline and increase in SOB. OTR stated that pt is not to be seen this date for OT treatment and will continue with POC as able. No treatment provided this date. LIAM Emerson/[employer]
--- NOTE | 2019-04-02 15:25 | NUR ---
RETURNED FROM RADIOLOGY AFTER PIGTAIL DRAIN PLACED
--- NOTE | 2019-04-02 15:49 | NUR ---
RIGHT PLEURX PLACEMENT CHECKED W/ SMALL AMOUNT OF DRAINAGE
[2019-04-02 16:24] LABS: BODY FLUID WBC 3726 /uL
--- NOTE | 2019-04-02 17:39 | NUR ---
DRESSING REMAINS INTACT TO RT PLUREX WITH NO NEW DRAINAGE. PT REQUESTING SOMETHING FOR PAIN.
--- NOTE | 2019-04-02 17:46 | NUR ---
MORPHINE GIVEN FOR PAIN IN BACK AT PLEUREX SITE
--- NOTE | 2019-04-02 21:06 | NUR ---
PT STATES "I DO NOT WANT TO BE WOKEN UP FOR VITAL SIGNS THROUGHOUT THE NIGHT". REY SERRANO NOTIFIED TO NOT WAKE PATIENT UP.
--- NOTE | 2019-04-03 03:00 | NUR ---
RIGHT CHEST DRESSING REMAINS CLEAN DRY AND INTACT
--- NOTE | 2019-04-03 05:53 | NUR ---
PT C/O PAIN AT PROCEDURE SITE. WILL MEDICATE PER ORDER.
--- NOTE | 2019-04-03 06:11 | NUR ---
PT MEDICATED WITH PRN MORPHINE FOR C/O PAIN RATED A 9/10. WILL MONITOR FOR EFFECTIVENESS.
[2019-04-03 07:56] LABS: BASO # 0.1 10*3/uL (0.0-0.1); BASO % 0.6 % (0.0-1.0); EOS # 0.3 10*3/uL (0.0-0.4); EOS % 1.9 % (1.0-4.0); HEMATOCRIT 31.5 % (42.0-52.0); HEMOGLOBIN 9.8 g/dl (14.0-18.0); LYMPH # 1.4 10*3/uL (1.3-4.4); LYMPH % 9.8 % (27.0-41.0); MEAN CELL VOLUME 85.8 fl (80.0-94.0); MEAN CORPUSCULAR HGB 26.7 pg (27.0-31.0); MEAN CORPUSCULAR HGB CONC 31.1 g/dl (33.0-37.0); MEAN PLATELET VOLUME 9.1 fl (9.6-12.3); MONO # 0.8 10*3/uL (0.1-1.0); MONO % 5.7 % (3.0-9.0); NEUT # 11.4 10*3/uL (2.3-7.9); NEUT % 81.4 % (47.0-73.0); PLATELET COUNT AUTOMATED 361 10*3/uL (130-400); RED BLOOD COUNT 3.67 10*6/uL (4.50-5.90)
[2019-04-03 08:00] VITALS: BP 108/66
--- NOTE | 2019-04-03 08:00 | NUR ---
Assessment completed. Medicated with norco per prn order for c/o pain to rt posterior back at pigtail site. Sob with minimal exertion noted. Berenice Solis in and saw pt states she is going to order additional dose of morphine for pain. NSR to St on CM hr 90-110's. Denies chest pain. Bp was 104/70. Will continue to monitor.
[2019-04-03 08:10] LABS: ALBUMIN 1.6 gm/dl (3.1-4.5); ALKALINE PHOSPHATASE 97 U/L (45-117); BUN 13 mg/dl (7-24); CHLORIDE 106 mmol/L (98-107); CREATININE 0.73 mg/dL (0.70-1.30); POTASSIUM 3.7 mmol/L (3.5-5.1); SGOT/AST 29 IU/L (3-35); SGPT/ALT 33 U/L (12-78); SODIUM 138 mmol/L (136-145); TOTAL PROTEIN 6.2 gm/dL (6.4-8.2)
--- NOTE | 2019-04-03 09:00 | NUR ---
case management visits with patient, he states he will return home when medically stable for discharge, denies any home needs at this time
--- NOTE | 2019-04-03 09:29 | NUR ---
Transport here to take pt off floor for CXR.
--- NOTE | 2019-04-03 09:30 | NUR ---
OT NOTE Pt was seen this A.M. 1:1 for 20 minute OT session. Upon arrival pt was sitting upright on the EOB. Pt identified by name and and had complaints of 8/10 R posterior rib pain. Pt presented to therapy with continuous 3L-O2 via NC which he remained on throughout the entire session. Pt's resting SpO2 was 94%. Before starting session pt was able to vebalize to therapist 3 energy conservation and relaxation techniques previously educated on. Sit to stand completed from bed level with SBA followed by functional mobility into the bathroom with SBA. There he sat on commode while completing toileting needs and then continued to sit until pt no longer felt SOB (SpO2 89%). Pt then stood sink side while washing his hands and wetting a wash rag. He then sat while washing his face and completing ADL task. Pt required occasional verbal prompts for relaxation throughout. Pt then returned to the EOB with Spo2 at 90% after aprox 20 seconds pt's SpO2 raised to 93%. Pt was left supine in bed with call light in hand, tray table in place, and phone in reach. Continue with rec D/C plan to home. LIAM Emerson/[employer]
--- NOTE | 2019-04-03 10:45 | NUR ---
Medicated with percocet per prn order for complaints of pain to rt posterior at pigtail site. Pt states as long as he does not move it is ok but states pain is 8/10 with movement.
[2019-04-03 11:17] LABS: BF LYMPHOCYTES 35 %; BF MACROPHAGES 2 %; BF MESOTHELIALS 3 %; BF MONOCYTES 1 %; BF NEUTROPHILS 58 %
--- NOTE | 2019-04-03 11:30 | NUR ---
States he is currently comfortable.
[2019-04-03 12:00] VITALS: BP 110/64
--- NOTE | 2019-04-03 13:22 | NUR ---
PHYSICAL THERAPY Pt reports he is in too much pain. Refusing therapy at this time. will attempt therapy evaluation at later time. Thank you Elizbaeth Richard, PT, DPT
[2019-04-03 16:00] VITALS: BP 114/57
--- NOTE | 2019-04-03 16:00 | NUR ---
Pt states that he currently is comfortable. States that percocet was effective and he doesn't have any pain with he is still. Notified him that morphine is available whenever he needs it. Denies need at this time.
--- NOTE | 2019-04-03 18:10 | NUR ---
Medicated with morphine iv per prn order for complaints of pain at rt pleurx catheter site. States if he lays perfectly still he is pain free, but states the moment he moves or coughs the pain is horrible. Reviewed pain medications and how ordered. Times written on board for next dose.
--- NOTE | 2019-04-03 19:12 | NUR ---
States morphine helped to relieve pain. Medicated with percocet per prn order and pt request for pain pill to keep pain under control.
[2019-04-03 20:00] VITALS: BP 114/56
--- NOTE | 2019-04-03 22:37 | NUR ---
PATIENT MEDICATED WITH MORPHINE FOR C/O BACK AND RIB PAIN. RATES 01/05. PATIENT ALSO MEDICATED AT THIS TIME WITH RESTORIL PER REQUEST. WILL CHECK EFFECTIVENESS.
[2019-04-04] VITALS: BP 118/64
--- NOTE | 2019-04-04 07:22 | NUR ---
Pt states he is feeling SOB. States he woke up at about [address] States he didn't let the nurse know. Medicated with morphine iv per prn order for pain as well at this time. Spoke with respiratory therapist and notified that pt would like treatment. She stated that pt did not have resp treatments last night. Stated he did not want to be wakened.
--- NOTE | 2019-04-04 07:45 | NUR ---
Assessment completed. Pt states he is feeling somewhat better since morphine and breathing treatment. Lungs diminished and clear throughout. Dressing intact to rt back at pleurx catheter site. Will continue to monitor.
[2019-04-04 08:00] VITALS: BP 114/64
--- NOTE | 2019-04-04 08:27 | NUR ---
Medicated with percocet per prn order for complaints of pain to site of pleurx. States pain is 5/10 currently without movement. Increased to 9/10 with movement and states pain is stabbing, sharp and lingers after movement.
--- NOTE | 2019-04-04 08:40 | NUR ---
Dr. Velez in and examined pt. States to drain fluid today at bedside via pleurx cath.
--- NOTE | 2019-04-04 09:00 | NUR ---
case management visits with patient, he stated he wasn't feel well this am, patient will return home when medically stable, discharge date undecided at this time due to patient's condition
--- NOTE | 2019-04-04 09:10 | NUR ---
Spoke with pt regarding plan to drain rt side at bedside. Plan is to do procedure at around 11 am to coinside with pt next dose of iv morphine. Pt is agreeable to this.
--- NOTE | 2019-04-04 11:00 | NUR ---
650 mg cc of serousanguinous fluid drained from rt pleurx cath. New dressing applied as prior.
--- NOTE | 2019-04-04 11:12 | NUR ---
OT NOTE PATIENT REPORTS IN "TOO MUCH" PAIN THIS DATE TO COMPLETE OT SESSION. WILL TRY BACK LATER TIME/DATE. JORGE A WHEELER/[employer]
--- NOTE | 2019-04-04 11:14 | NUR ---
Medicated with morphine iv per prn order after fluid drained from pleurx cath. Pt requested morphine given after procedure instead of prior.
[2019-04-04 12:00] VITALS: BP 92/53
--- NOTE | 2019-04-04 12:00 | NUR ---
States that morphine helped to ease pain.
--- NOTE | 2019-04-04 14:20 | NUR ---
case management and social media editor visit with patient and daughter, reviewed the poa and living will forms and witnessed them, case managment also contacted Lida from [employer] regarding patient possibly not having any insurance if he is unable to continue working, case managment will follow
--- NOTE | 2019-04-04 14:22 | NUR ---
Medicated with percocet per prn order for complaints of pain at rt pleurx site. States pain 12/05.
--- NOTE | 2019-04-04 15:30 | NUR ---
States that he is comfortable at this time. Pt has been up walking in room.
[2019-04-04 16:00] VITALS: BP 99/53
--- NOTE | 2019-04-04 16:35 | NUR ---
Pt had coughing episode. Medicated with morphine iv per prn order for pain 01/05.
[2019-04-04 20:00] VITALS: BP 113/55
--- NOTE | 2019-04-04 22:04 | NUR ---
PATIENT MEDICATED WITH RESTORIL AND TYLENOL PER REQUEST. WILL CHECK EFFECTIVENESS.
[2019-04-05] VITALS: BP 115/70
[2019-04-05 06:27] LABS: BASO # 0.1 10*3/uL (0.0-0.1); BASO % 0.6 % (0.0-1.0); EOS # 0.6 10*3/uL (0.0-0.4); EOS % 4.6 % (1.0-4.0); HEMATOCRIT 32.4 % (42.0-52.0); HEMOGLOBIN 9.7 g/dl (14.0-18.0); LYMPH # 1.4 10*3/uL (1.3-4.4); LYMPH % 11.2 % (27.0-41.0); MEAN CELL VOLUME 86.4 fl (80.0-94.0); MEAN CORPUSCULAR HGB 25.9 pg (27.0-31.0); MEAN CORPUSCULAR HGB CONC 29.9 g/dl (33.0-37.0); MEAN PLATELET VOLUME 9.6 fl (9.6-12.3); MONO # 0.5 10*3/uL (0.1-1.0); MONO % 4.2 % (3.0-9.0); NEUT % 78.8 % (47.0-73.0); PLATELET COUNT AUTOMATED 411 10*3/uL (130-400); RED BLOOD COUNT 3.75 10*6/uL (4.50-5.90); WHITE BLOOD COUNT 12.7 10*3/uL (4.8-10.8)
--- NOTE | 2019-04-05 07:39 | NUR ---
Shift chart check completed.
[2019-04-05 08:00] VITALS: BP 124/70
--- NOTE | 2019-04-05 08:51 | NUR ---
PT COMPLAIN OF LEFT LUNG PAIN AND PAIN AT PLEUREX CATH SITE. MORPHINE GIVEN. WILL MONITOR FOR EFFECTIVENESS. PT STATES FEELS SHORT OF BREATH AT REST. PT IS TACHYPENIC AT REST. SAO2 90-92 ON 3 LITESR. OXYGEN INCREASE TO 4 LITERS.
[2019-04-05 09:00] VITALS: BP 116/60; BP 160/100
--- NOTE | 2019-04-05 09:24 | NUR ---
PT STATES MORPHINE EFFECTIVE
--- NOTE | 2019-04-05 09:31 | NUR ---
ALBINA RODRIGUEZ NOTIFIED OF RUN OF SVT THIS AM AT 0655.
--- NOTE | 2019-04-05 09:35 | NUR ---
DR. GURROLA AWARE OF NEW CONSULT, ALBINA RODRIGUEZ DISCUSS PATIENT WITH DR. GURROLA
--- NOTE | 2019-04-05 10:10 | NUR ---
PT WOKE UP, ALBINA RODRIGUEZ IN TO SEE PATIENT. PT STATES PAIN "BETTER". PT EDUCATED ON NEW MEDICATIONS, XANAX AND COLACE. NO QUESTIONS AT THIS TIME
[2019-04-05] MEDS ORDERED: TEMAZEPAM15 M1 PO (10:36)
[2019-04-05] MEDS ORDERED: LOPRESSOR25 MG PO (10:36)
[2019-04-05] MEDS ORDERED: Percocet 325 MG1 TAB PO (10:36)
[2019-04-05] MEDS ORDERED: ENOXAPARIN80 MG/0.2 SC (10:36)
[2019-04-05] MEDS ORDERED: NATURE'S BLEND F1 MG PO (10:36)
[2019-04-05] MEDS ORDERED: LEVAQUIN750 M1 PO (10:36)
--- NOTE | 2019-04-05 10:39 | NUR ---
METOPROLOL GIVEN, FIRST DOSE. PT EXPLAINED MEDICATION DOSE/USE AND HAS NO QUESTIONS AT THIS TIME. PT STATES NO NEEDSD AT THIS TIME
[2019-04-05] MEDS ORDERED: XANAX0.25 MG PO (11:17)
--- NOTE | 2019-04-05 11:36 | NUR ---
case management visits with patient, discussed with him [facility] seeing him when he is discharged, also informed him that [facility] will teach his daughter how to change the dressing to his pleurx cath and help him with his lovenox injections, also discussed with him if he was able to pay for his lovenox injections as we had discussed a few days ago, patient stated he had to take the money out of his account and wouldn't be able to do that for a few days, informed him that the hospital could pay for one month of this for him, informed hospitalist nurse director. patient stated he wanted to go to an assisted living, educated him that assisted living is a private pay facility and that he and his daughter can work on this when he is discharged, case management will follow for any other needs
--- NOTE | 2019-04-05 11:40 | NUR ---
PT COMPLAIN OF LUNG PAIN AND PAIN AT PLEUREX SITE, PERCOCET GIVEN. WILL MONITOR FOR EFFECTIVENESS
[2019-04-05] MEDS ORDERED: Ipratropium Brom3 ML NEB (11:49)
[2019-04-05 12:00] VITALS: BP 99/58
--- NOTE | 2019-04-05 12:20 | NUR ---
PT ASSESSED FOR HOME OXYGEN. PT QUALIFIED. PT AT REST SPO2 81-83% RA, HR 104, RR 21, B/P 160/100 PT PLACED ON 2LNC SPO2 INCREASED TO 86% INCREASED FIO2 TO 3LNC SPO2 THEN 90-91%. PT AMBULATED SPO2 91-93% ON 3LNC PT AT REST SPO2 92-93% 3LNC, HR 103, RR 24, B/P 125/69 RN NOTIFIED AND NOTIFIED REQUESTED A NEBULIZER FOR PT FOR HOME USE
--- NOTE | 2019-04-05 13:00 | NUR ---
OT NOTE Pt was seen this P.M. 1:1 for 20 minute OT session. Upon arrival pt was sitting upright on the EOB with daughter at bedside. Pt identified by name and and had complaints of pain on the R posterior rib area which he did not rate on 0-10 pain scale. Pt was requesting to rest at this time however he and the daughter were requesting some information on energy conservation techniques. Pt and daughter were provided and educated on energy conservation with ADL/IADL tasks handouts. Pt reported that he was having problems with dressing and showering with those being the two tasks that increase SOB. Pt was educated on techniques and also demonstrated. Pt was initally completing LB dressing while being forward flexed at the waist. Educated pt to bring his foot to his knee, pt was able to complete and reported that it was "better." Pt was also educated on use of a shower chair, bathing techniques, and water temp due to reports of using hot water. All other questions were answered at this time. Pt was left sitting upright on the EOB with call light in hand, tray table in place, and daughter at bedside. COntinue with rec D/C plan to home. LIAM Emerson/[employer]
--- NOTE | 2019-04-05 13:57 | NUR ---
PT STATES PAIN LEFT UPPER CHEST/LUNG 01/05. MORPHINE GIVEN. DAUGHTER AT BEDSIDE, UPDATED ON PLAN OF CARE. NO OTHER QUESTIONS AT THIST E[facility]
--- NOTE | 2019-04-05 14:35 | NUR ---
PT STATES MORPHINE EFFECTIVE AT THIS TIME
--- NOTE | 2019-04-05 15:00 | NUR ---
SPOKE TO OUTPATIENT PHARMACY, PATIENTS LOVENOX COMES TO 189.50 FOR ONE MONTH AND PATIENTS OTHER RX TODAL 30.25- MADE PATIENT AWARE OF COST AND THAT OUTPATIENT PHARMACY CLOSES AT 430PM. PT STATES WILL CALL DAUGHTER TO STOP BY HIS HOUSE AND GET HIS CREDIT CARD SO SHE CAN [employer] WHEN SHE RETURNS TO HOSPITAL TODAY.
[2019-04-05 16:00] VITALS: BP 100/55
--- NOTE | 2019-04-05 16:13 | NUR ---
PT STATES HE SPOKE TO HIS DAUGHTER AND SHE WAS ON HER WAY BACK HERE AROUND AN HOUR AGO, HE IS AWARE THAT RX NEED PICKED UP TODAY FROM OUTPATIENT PHARMACY SO PATIENT HAS RX FILLED FOR POSSIBLE DISCHARGE HOME THIS WEEKEND.
--- NOTE | 2019-04-05 16:18 | NUR ---
PT COMPLAINS OF PAIN LEFT UPPER CHEST. PERCOCET GIVEN. WILL MONITOR FOR EFFECTIVENESS
--- NOTE | 2019-04-05 18:18 | NUR ---
PT STATES PAIN 7/10, LEFT UPPER CHEST/LUNG AND PLEUREX DRAIN RIGHT LOWER BACK. MORPHINE GIVEN
--- NOTE | 2019-04-05 18:46 | NUR ---
PT SLEEPING, NO DISTRESS NOTED
[2019-04-05 20:00] VITALS: BP 115/62
--- NOTE | 2019-04-05 23:27 | NUR ---
PATIENT MEDICATED WITH RESTORIL AND MORPHINE PER REQUEST FOR COMPLAINTS OF LUNG AND RIB PAIN. RATES 03/07. WILL CHECK EFFECTIVENESS.
[2019-04-06] VITALS: BP 127/77
--- NOTE | 2019-04-06 02:00 | NUR ---
PATIENT SLEEPING. RESPIRATIONS EASY, NON LABORED. MORHPHINE AND RESTORIL EFFECTIVE. BED IN LOWEST POSITION, CALL LIGHT WITHIN REACH. WILL CONTINUE TO MONITOR.
[2019-04-06 06:56] LABS: CREATININE 0.65 mg/dL (0.70-1.30)
--- NOTE | 2019-04-06 07:03 | NUR ---
PATIENT C/O OF SEVERE BACK AND LUNG PAIN. RATES 03/07. MEDICATED WITH MORPHINE, WILL CHECK EFFECTIVENESS.
[2019-04-06 08:00] VITALS: BP 122/76
[2019-04-06 12:00] VITALS: BP 126/57
--- NOTE | 2019-04-06 12:00 | NUR ---
75 CC OF SEROUSANGUINOUS FLUID DRAINED FRO RT PLEURX CATH. NEW DRSG. PLACED.
--- NOTE | 2019-04-06 12:05 | NUR ---
MORPHINE GIVEN FOR C/O BACK PAIN. RATES 10/10 ON PAIN SCALE. WILL MONITOR.
--- NOTE | 2019-04-06 13:10 | NUR ---
MORPHINE EFFECTIVE PER PT.
[2019-04-06 16:00] VITALS: BP 126/76
--- NOTE | 2019-04-06 19:18 | NUR ---
Increased patient to 4LPM O2 due to SPO2 of 88% on 3L at rest with complaints of SOB. SPO2 now 93%
[2019-04-06 20:00] VITALS: BP 127/71
--- NOTE | 2019-04-06 21:47 | NUR ---
PATIENT COMPLAINING OF HAVING A HARD TIME BREATHING. SOB NOTED AT REST. DRAINED 20CC FROM PIGTAIL DRAIN AT THIS TIME. PATIENT BREATHING EASIER NOW. DENIES COMPLAINTS OF PAIN. O2 ON AT 3L N/C. LUNGS DIMINISHED. AMBULATED PER SELF TO BATHROOM. WILL CONTINUE TO MONITOR. CALL LIGHT IN REACH.
--- NOTE | 2019-04-06 22:03 | NUR ---
PATIENT STILL COMPLAINING OF SHORTNESS OF BREATH. 15CC MORE FLUID TAKEN FROM PLEUREX CATH. PATIENT MEDICATED WITH MORPHINE AT THIS TIME. PATIENT STATES HE IS BREATHING EASIER AT PRESENT. WILL CONTINUE TO MONITOR. CALL LIGHT IN REACH.
--- NOTE | 2019-04-06 23:28 | NUR ---
PATIENT MEDICATED WT RESTORIL FOR COMPLAINTS OF INSOMNIA. STATED HE IS BREATHING MUCH EASIER NOW AND SHOULD SLEEP THE NIGHT. DENIES COMPLAINTS OF PAIN OR DISCOMFORT. RESPIRATIONS REGULAR AND NON-LABORED. WILL CONTINUE TO MONITOR. CALL LIGHT IN REACH.
[2019-04-07] VITALS: BP 131/79
--- NOTE | 2019-04-07 05:15 | NUR ---
PATIENT MEDICATED [facility] MORPHINE FOR COMPLAINTS OF PAIN. REFUSES TO HAVE DRAIN DRAINED AT THIS TIME. SAYS HIS BREATHING IS GOOD RIGHT NOW AND DOESN'T WANT ME TO BOTHER IT. WILL CONTINUE TO MONITOR. CALL LIGHT IN REACH.
[2019-04-07 06:26] LABS: BASO # 0.1 10*3/uL (0.0-0.1); BASO % 0.3 % (0.0-1.0); EOS # 0.1 10*3/uL (0.0-0.4); EOS % 0.5 % (1.0-4.0); HEMATOCRIT 32.3 % (42.0-52.0); HEMOGLOBIN 9.9 g/dl (14.0-18.0); LYMPH # 1.4 10*3/uL (1.3-4.4); LYMPH % 9.7 % (27.0-41.0); MEAN CELL VOLUME 85.7 fl (80.0-94.0); MEAN CORPUSCULAR HGB 26.3 pg (27.0-31.0); MEAN CORPUSCULAR HGB CONC 30.7 g/dl (33.0-37.0); MEAN PLATELET VOLUME 9.3 fl (9.6-12.3); MONO # 0.7 10*3/uL (0.1-1.0); MONO % 5.1 % (3.0-9.0); NEUT % 83.4 % (47.0-73.0); PLATELET COUNT AUTOMATED 388 10*3/uL (130-400); RED BLOOD COUNT 3.77 10*6/uL (4.50-5.90); RED CELL DISTRI WIDTH 14.3 % (0-14.5); WHITE BLOOD COUNT 14.3 10*3/uL (4.8-10.8)
[2019-04-07 06:46] LABS: BUN 14 mg/dl (7-24); CHLORIDE 106 mmol/L (98-107); POTASSIUM 3.7 mmol/L (3.5-5.1); SODIUM 140 mmol/L (136-145)
[2019-04-07 08:00] VITALS: BP 124/77; BP 124/78
--- NOTE | 2019-04-07 08:00 | NUR ---
24 HR chart check completed.
--- NOTE | 2019-04-07 08:30 | NUR ---
PATIENT SITTING UP AT BEDSIDE, TACHYPNEIC. ENCOURAGED TO BREATH THROUGH NOSE AND OUT MOUTH. PULSE OX 88% 4.5L. RESP PAGED. PLEUREX CATH DRAINED AT PATIENT'S REQUEST, 18CC MORALES FLUID.
--- NOTE | 2019-04-07 09:38 | NUR ---
RESTING IN BED. O2 IN USE AT 7L HI-FLOW. MEDICATED WITH MORPHINE PER PRN ORDER FOR COMPLAINTS OF PAIN AT DRAIN SITE RATING A 5. CALL LIGHT WITHIN REACH. WILL MONITOR FOR EFFECTIVENESS
--- NOTE | 2019-04-07 10:45 | NUR ---
DR BOJORQUEZ HERE TO ASSESS PATIENT AND DISCUSS PLAN OF CARE
--- NOTE | 2019-04-07 11:00 | NUR ---
MEDS APPEAR EFFECTIVE. SLEEPING. CALL LIGHT WITHIN REACH
[2019-04-07 12:00] VITALS: BP 114/78
--- NOTE | 2019-04-07 14:17 | NUR ---
MEDICATED WITH MORPHINE IV PER PRN ORDER FOR COMPLAINTS OF PAIN TO RIGHT POSTERIOR BACK DRAIN SITE. CALL LIGHT WITHIN REACH. WILL MONITOR
--- NOTE | 2019-04-07 14:20 | NUR ---
TRANSPORTED OFF FLOOR VIA WC FOR TESTING
--- NOTE | 2019-04-07 14:36 | NUR ---
RETURNED FROM TESTING
[2019-04-07 16:00] VITALS: BP 129/69
--- NOTE | 2019-04-07 16:00 | NUR ---
EARLIER MEDS APPEAR EFFECTIVE. RESTING IN BED WITH EYES CLOSED AND NO DISTRESS NOTED. RESPIRATIONS EASY. PULSE OX 91% 7L HI-FLOW. CALL LIGHT WITHIN REACH
[2019-04-07 18:00] VITALS: BP 129/69
[2019-04-07 20:00] VITALS: BP 129/77
--- NOTE | 2019-04-07 20:57 | NUR ---
PATIENT MEDICATED WITH MORPHINE FOR COMPLAINTS OF RIGHT RIB AND BACK PAIN. PATIENT BECOMES SHORT OF BREATH ON HIGH FLOW N/C AT 7L. PATIENT HAS A NON-PRODUCTIVE COUGH. LUNGS DIMINISHED. PATIENT AMBULATES TO BATHROOM PER SELF. WILL CONTINUE TO MONITOR. CALL LIGHT IN REACH.
--- NOTE | 2019-04-07 21:58 | NUR ---
PATIENT MEDICATED WITH RESTORIL FOR COMPLAINTS OF INSOMNIA. PATIENT STATES HE IS BREATHING EASIER AT THIS TIME. BLOOD SUGAR 164. REFUSES COVERAGE AT THIS TIME. NO SIGNS OR SYMPTOMS OF DISTRESS NOTED. WILL CONTINUE TO MONITOR. CALL LIGHT IN REACH.
[2019-04-08] VITALS: BP 132/71
--- NOTE | 2019-04-08 01:20 | NUR ---
24 HR chart check completed.
--- NOTE | 2019-04-08 05:35 | NUR ---
PATIENT REFUSED TO LET ME CHECK HIS BEDSIDE GLUCOSE AT THIS TIME. HE STATED HE IS TIRED OF EVERYTHING AND NOTHING IS HELPING HIM TO GET BETTER. STATED HE IS JUST DETERIORATING AND GETTING WORSE SO WHAT'S THE POINT. MEDICATED WITH MORPHINE AT THIS TIME FOR BACK PAIN AND BREATHING. WILL CONTINUE TO MONITOR. CALL LIGHT IN REACH.
[2019-04-08 08:00] VITALS: BP 143/77
--- NOTE | 2019-04-08 09:00 | NUR ---
case management visits with patient, daughter present, daughter stated patient would be transferred to [facility] sometime today when a bed was available for a higher level of care, no other needs at this time
--- NOTE | 2019-04-08 09:05 | NUR ---
IN TO SEE PT. PT AGREEABLE TO TRANSFER TO [facility] FOR FURTHER CARE.
--- NOTE | 2019-04-08 09:34 | NUR ---
PLEUDEX DRAINED FOR 22 CC. PT STATES HE HAS REFLIEF AND IS BREATHING BETTER. CALL LIGHT IN REACH. HIGH FLOW O2 IN USE AT 7 LITERS. FAMILY AT BEDSIDE.
--- NOTE | 2019-04-08 10:18 | NUR ---
OT NOTE Attempted to see pt this A.M. for OT session and upon arrival pt was supine in bed with daughter at bedside. Pt reported that he had been up to the bathroom several times this morning with one just being minutes ago so requesting to rest at this time. Will check back at a later time/date and continue with POC as able. LIAM Emerson/[employer]
--- NOTE | 2019-04-08 10:45 | NUR ---
PHYSICAL THERAPY Patient was resting supine in bed this am when approached for therapy visit, with a family memberf present upon therapist arrival. Patient presented with portable O2 bottle via NC and stated he had just returned from the bathroom. Patient c/o of L forearm numbness / tingling and upon observation noticed the portable O2 bottle was empty. Patient SpO2 75%, HR 105 bpm and was immediately placed on continuos O2-7L via NC. Nurse had just arrived and informed of decreased SpO2 stats and bumped O2 to 8L via NC. Patient SpO2 rechecked after several minutes and increased to 89%, HR 98 bpm. Patient remained in bed to rest and will continue per POC as tolerated. Leopoldo Manning, ENGLISH INSTRUCTOR
[2019-04-08 12:00] VITALS: BP 143/77
--- NOTE | 2019-04-08 12:43 | NUR ---
REFUSED BSG CHECK. STATES HE IS AFRAID OF POKING HIS FINGERS WITH LANCETS. EDUCATED ON IMPORTANCE OF MONITORING, STILL REFUSED BSG CHECK. PT STATES HE HAS A PHOBIA TO THE ACT.
[2019-04-08 16:00] VITALS: BP 135/75
--- NOTE | 2019-04-08 19:00 | NUR ---
Discharge instructions reviewed with patient/family. Patient receptive and verbalizes understanding. Follow-up care arranged. Written instructions given to patient/family. DAMIAN ALARCON
--- NOTE | 2019-04-09 07:59 | NUR ---
OCCUPATIONAL THERAPY CO-SIGN I approve of the Occupational Therapy notes written above. ROB SEN OTR/[employer]
--- NOTE | 2019-04-09 08:05 | NUR ---
PHYSICAL THERAPY CO-SIGN I approve of the Physical Therapy notes written above. Elizabeth Richard, PT, DPT
== END 2019-04-08 19:00 | disposition short-term general hospital (02) | DRG 193 ==
LOC: ED 16:41 → EDHOLD 20:00 → 4E 20:00
PROVIDERS: Emergency Medicine; Family Medicine; Radiology Diagnostic Radiology; Registered Nurse; Student in an Organized Health Care Education/Training Program; ADMIT Emergency Medicine
PROC: 0W993ZZ Drainage of Right Pleural Cavity, Percutaneous Approach (ICD-10-PCS; principal; 2019-04-02)
DX: J18.9 Pneumonia, unspecified organism (principal); J96.21 Acute and chronic respiratory failure with hypoxia; I26.99 Other pulmonary embolism without acute cor pulmonale; E44.0 Moderate protein-calorie malnutrition; C34.91 Malignant neoplasm of unspecified part of right bronchus or lung; I31.3 Pericardial effusion (noninflammatory); R79.89 Other specified abnormal findings of blood chemistry; K21.9 Gastro-esophageal reflux disease without esophagitis; E78.5 Hyperlipidemia, unspecified; G47.00 Insomnia, unspecified; F41.9 Anxiety disorder, unspecified; Z90.49 Acquired absence of other specified parts of digestive tract; Z72.89 Other problems related to lifestyle; F17.210 Nicotine dependence, cigarettes, uncomplicated; Z81.8 Family history of other mental and behavioral disorders; J44.9 Chronic obstructive pulmonary disease, unspecified; Z68.20 Body mass index [BMI] 20.0-20.9, adult